=== PATIENT | female | born 1965 | race Hispanic/Latino ===

== ENCOUNTER 2021-11-28 20:36 | Emergency (ER) | payer BC ==
[~2021-11-28] VITALS: Ht 167.6 cm; Wt 83.9 kg
[2021-11-28 21:29] LABS: APPEARANCE,URINE Clear (CLEAR); BILIRUBIN,URINE Negative (NEGATIVE); COLOR,URINE Yellow (YELLOW); GLUCOSE, URINE (UA) Negative (NEGATIVE); KETONES,URINE Negative (NEGATIVE); LEUKOCYTE ESTERASE ,URINE Trace (NEGATIVE); NITRATE,URINE Negative (NEGATIVE); OCCULT BLOOD,URINE Trace (NEGATIVE); PROTEIN,URINE Negative (NEGATIVE); UROBILINOGEN,URINE 0.2 mg/dL (0.2-1.0)
[2021-11-28 21:34] LABS: BACTERIA,URINE Few /HPF (None Seen); RBC,URINE 0-1 /HPF (0-1); SQUAMOUS EPITHELIAL CELL,UR Moderate /HPF (0-2)
[2021-11-28] MEDS ORDERED: ORPHENADRINE CITRATE 30 MG/ML ML ONE (21:54)
[2021-11-28] MEDS ORDERED: KETOROLAC 30MG VIAL (30MG/ML) ONE (21:54)
[2021-11-28] MEDS ORDERED: KETOROLAC 30MG VIAL (30MG/ML) IM ONE (22:00)
[2021-11-28] MEDS ORDERED: ORPHENADRINE CITRATE 30 MG/ML ML IM ONE (22:00)
[2021-11-28] MEDS ORDERED: NAPR500T6 PO (22:08)
[2021-11-28] MEDS ORDERED: CYCL10TA16 PO (22:08)
[2021-11-28 22:44] VITALS: BP 138/69
== END 2021-11-28 22:49 | disposition home or self-care (01) ==
LOC: EDH 20:36
DX: M54.50 Low back pain, unspecified (principal); Z98.890 Other specified postprocedural states; Z79.899 Other long term (current) drug therapy
CPT/HCPCS: 72100; 81001; 96372 ×2; 99284; J1885; J2360